=== PATIENT | male | born 1980 | race Asian ===

== ENCOUNTER 2017-10-06 21:16 | Emergency (ER) | payer BC ==
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
[2017-10-06] MEDS ORDERED: OXYCODONE/APAP 5/325 TAB PO ONE (22:26)
[2017-10-06] MEDS ORDERED: ONDANSETRON DISINTEGRATING 4 MG TAB PO ONE (22:26)
[2017-10-06] MEDS ORDERED: OXYCODONE/APAP 5/325MG PREPACK#4 BTL TAKEHOME ONE (23:01)
[2017-10-06] MEDS ORDERED: LET GEL TOPICAL 1 EA SYR TP ONE ×2 (23:14→23:20)
[2017-10-06 23:26] VITALS: BP 150/57
== END 2017-10-07 00:15 | disposition home or self-care (01) ==
DX: S42.252A Displaced fracture of greater tuberosity of left humerus, initial encounter for closed fracture (principal); V18.2XXA Unspecified pedal cyclist injured in noncollision transport accident in nontraffic accident, initial encounter
CPT/HCPCS: A4565

== ENCOUNTER → 2017-10-13 | Outpatient (CLI) | payer BC | LOC: FIMAGING 10:53 | PROVIDERS: ATTEND Physician Assistant | DX: S42.352D Displaced comminuted fracture of shaft of humerus, left arm, subsequent encounter for fracture with routine healing (principal) ==